=== PATIENT | female | born 1955 | race Caucasian/White ===

== ENCOUNTER 2019-06-28 15:14 | Emergency (ER) | payer MEDICAID ==
[~2019-06-28] VITALS: Ht 167.6 cm; Wt 68.0 kg
[2019-06-28 15:15] VITALS: BP 209/102
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
[2019-06-28] MEDS ORDERED: Morphine Sulfate 4mg/ml Inj (IV USE ONLY) IVP ONE ×2 (15:30→18:15)
[2019-06-28] MEDS ORDERED: Ketorolac 30mg Inj IV ONE (15:30)
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
[2019-06-28] MEDS ORDERED: Cyclobenzaprine 10mg Tab ORAL ONE (18:00)
[2019-06-28] MEDS ORDERED: TRAMADOL HCL50 MG ORAL (18:08)
[2019-06-28] MEDS ORDERED: CYCLOBENZAPRINE10 MG ORAL (18:08)
[2019-06-28 18:25] VITALS: BP 165/95
--- NOTE | 2019-06-28 18:25 | NUR ---
ER DISCHARGE NOTE: Patient is cleared to be discharged per ERMD, pt is aox4, on room air, with stable vital signs. pt was given dc and prescription instructions, pt was able to verbalize understanding, pt id band and iv site removed without complications. pt is able to ambulate with steady gait. pt took all belongings.
--- NOTE | 2019-06-29 14:17 | Diagnostic Imaging Report ---
Indication: Knee pain 2 views of the right knee were obtained. Findings: No acute fracture, malalignment, or joint effusion are identified. Joint space is relatively well-maintained. There are marginal spurs involving the medial and patellofemoral compartments. Bone mineralization is diminished. Impression: Osteoarthritis
--- NOTE | 2019-06-29 14:33 | Diagnostic Imaging Report ---
Indication: right leg pain Comparison: None Findings: Two views of the right tibia and fibula were obtained. No acute fracture, malalignment, or periosteal reaction are identified. Bones are osteopenic Soft tissues swelling noted. Impression: No acute injury appreciated. Osteopenia. Soft tissue swelling
--- NOTE | 2019-06-29 14:34 | Diagnostic Imaging Report ---
Indication: Dyspnea Comparison: None A single view chest radiograph was obtained. Findings: No definite infiltrate or pulmonary vascular congestion identified. The heart is normal size. The aorta is mildly enlarged consistent with atherosclerotic vascular disease. The bones are osteopenic. Impression: No acute disease
--- NOTE | 2019-06-29 14:34 | Diagnostic Imaging Report ---
Indication: Left elbow pain Findings: 3 views of the left elbow were obtained. No acute fractures, malalignment, erosions or periostitis are identified. Soft tissues are unremarkable. Impression: No acute injury
--- NOTE | 2019-06-29 14:34 | Diagnostic Imaging Report ---
Indication: left shoulder pain Findings: 3 views of the left shoulder were obtained. Alignment of the left shoulder is normal. No acute fracture is identified. Bones are osteopenic. Soft tissues are unremarkable. Impression: No acute injury
== END 2019-06-28 18:25 | disposition home or self-care (01) ==
LOC: EDBD 15:14 → EMR 16:24
DX: S40.012A Contusion of left shoulder, initial encounter (principal); S80.11XA Contusion of right lower leg, initial encounter; M54.5 Low back pain; V43.52XA Car driver injured in collision with other type car in traffic accident, initial encounter; Y92.410 Unspecified street and highway as the place of occurrence of the external cause; R07.81 Pleurodynia; E11.9 Type 2 diabetes mellitus without complications; I10 Essential (primary) hypertension
CPT/HCPCS: 71045; 71250; 72131; 73030; 73080; 73560; 73590; 93005; 96374; 96375; 96376; J1885; J2270; J2405; Z7502; 99284